=== PATIENT | female | born 1960 | race Caucasian/White ===

== ENCOUNTER 2017-05-24 00:40 | Inpatient (IN) ==
[2017-05-24] MEDS ORDERED: ASPIRIN PO STA (00:43)
[2017-05-24 02:09] LABS: UR AMPHETAMINES QUAL NONE DETECTED (NONE DETECT); UR BARBITUATES QUAL NONE DETECTED (NONE DETECT); UR BENZODIAZEPIN QUAL NONE DETECTED (NONE DETECT); UR CANNABINOIDS QUAL NONE DETECTED (NONE DETECT); UR COCAINE QUAL NONE DETECTED (NONE DETECT); UR MDMA QUAL NONE DETECTED (NONE DETECT); UR METHADONE QUAL NONE DETECTED (NONE DETECT); UR METHAMPHETAMINE QUAL NONE DETECTED (NONE DETECT); UR OPIATES QUAL NONE DETECTED (NONE DETECT); UR OXYCODONE QUAL NONE DETECTED (NONE DETECT); UR PCP QUAL NONE DETECTED (NONE DETECT); UR TCA QUAL NONE DETECTED (NONE DETECT)
[2017-05-24 02:16] LABS: INR 0.94 (0.86-1.15); PROTIME 13.3 Seconds (12.1-15.5)
[2017-05-24 02:17] LABS: PTT PL 32.7 Seconds (22.6-43.9)
[2017-05-24 02:23] LABS: BASO% 0.1 % (0.0-0.8); HEMATOCRIT 46.9 % (37.0-47.0); HEMOGLOBIN 14.9 g/dL (12.0-16.0); IMM GRAN# 0.04 X1000 (0.0-0.04); IMM GRAN% 0.3 % (0.0-0.5); LYMPH# 0.77 X1000 (1.2-3.4); MANUAL DIFF NEEDED? NO; MCH 32.7 PG (27-31); MCHC 31.8 g/dL (33-37); MCV 103.1 FL (81-99); MONO% 7.8 % (1.7-9.3); MPV 10.6 FL (7.4-10.4); NEUT% 86.8 % (42.2-75.2); PLT 281 X1000 (130-400); RBC 4.55 XMIL (4.2-5.4)
[2017-05-24 02:24] LABS: BILIRUBIN URINE 1+ (NEGATIVE); BLOOD URINE NEGATIVE (NEGATIVE); COLOR AMBER; GLUCOSE URINE NEGATIVE (NEGATIVE); LEUKOCYTES URINE TRACE (NEGATIVE); NITRITE URINE POSITIVE (NEGATIVE); PROTEIN URINE 2+(100 mg/dL) mg/dL (NEGATIVE); SP GRAVITY URINE 1.025
[2017-05-24 02:27] LABS: URINE RBC <10 /HPF (<10); URINE WBC <10 /HPF (<10)
[2017-05-24 02:28] LABS: CLARITY HAZY (CLEAR); URINE CULTURE PL NEEDED? YES; URINE EPITHELIAL CELLS <10 /HPF (<10); URINE SOURCE CATH
--- NOTE | 2017-05-24 02:32 | EKG Report ---
Test Performed on : 05/24/2017 00:45:35 AM Test Reason : CHEST PAIN Blood Pressure : / mmHG Vent. Rate : 101 BPM Atrial Rate : 101 BPM P-R Int : 142 ms QRS Dur : 074 ms QT Int : 360 ms P-R-T Axes : 063 077 026 degrees QTc Int : 466 ms Sinus tachycardia. with frequent premature ventricular complexes. Nonspecific ST abnormality Abnormal ECG No previous ECGs available Unconfirmed Result
[2017-05-24 02:34] LABS: AGAP 14; ALBUMIN 3.4 g/dL (3.5-5.0); ALKALINE PHOSPHATASE 90 U/L (32-104); BUN 17 mg/dL (8-22); CALCIUM 8.8 mg/dL (8.8-10.2); CHLORIDE 97 mmol/L (98-107); CK PROFILE 70 U/L (24-173); COSMO 279; GOT 20 U/L (10-30); GPT 11 U/L (10-36); MAGNESIUM 1.9 mg/dL (1.5-2.7); POTASSIUM 5.4 mmol/L (3.5-5.1); SODIUM 137 mmol/L (136-145); TCO2 26 mmol/L (25-35); TOTAL PROTEIN 7.1 g/dL (6.3-8.3)
[2017-05-24 02:34] LABS: UROBILINOGEN URINE 3+(8 mg/dL)
[2017-05-24] MEDS ORDERED: ROCEPHIN 1 GM in NS 50 ML IV ONE (02:43)
--- NOTE | 2017-05-24 04:08 | PROVIDER DOCUMENTATION ---
This chart was entered by Zeinab Bryan Scribe, acting as scribe for Roberto Hill MD. HPI-Respiratory General - General Chief Complaint: Shortness of Breath Stated Complaint: respiratory distress Time Seen by Provider: 05/24/17 00:42 Source: EMS, RN notes reviewed Allergies/Adverse Reactions: Patient Allergies Allergy/AdvReac Type Severity Reaction Status Date / Time No Known Allergies Allergy Verified 05/24/17 01:24 Home Medications: Home Medication List Medication Instructions Recorded Confirmed Last Taken Type Metoprolol Tartrate 100 mg PO BID 05/24/17 05/24/17 Unknown History Tramadol HCl [Ultram] 50 mg PO Q6-8H PRN PRN 05/24/17 05/24/17 Unknown History - History of Present Illness-Resp Nature of Presenting Problem: 58 Y/O F present to ER by EMS after being SOB RAIL BONDER. pt was given breathing treatment in the ambulance. pt was found unresponsive an low O2 sat level at home. EMS states that they tried to tube the pt but were unsuccessful. pt was on Bipap and unresponsive when arrive to ER/ Quality of Pain: reports: none Severity in ED: reports: moderate Onset/Duration: reports: just prior to arrival Timing: reports: still present Current Respiratory Medication Therapy: Initiated see nurses note Modifying Factors: improves with: nothing Associated Symptoms: reports: short of breath Review of Systems - Adult - REVIEW OF SYSTEMS - ADULT Constitutional: reports: no symptoms reported Eyes: reports: no symptoms reported Ears, Nose, Mouth & Throat: reports: no symptoms reported Cardiovascular: reports: no symptoms reported Respiratory: reports: see HPI, shortness of breath Gastrointestinal: reports: no symptoms reported Genitourinary: reports: no symptoms reported Musculoskeletal: reports: no symptoms reported Integumentary: reports: no symptoms reported Neurological: reports: no symptoms reported Psychiatric: reports: no symptoms reported Endocrine: reports: no symptoms reported Hematologic/Lymphatic: reports: no symptoms reported Allergic/Immunologic: reports: no symptoms reported All Other Systems: Reviewed and Negative Past History - Adult - PAST MEDICAL HISTORY-ADULT Review of Records: reports: Old Records Reviewed, Nursing Assessment Review - IMMUNIZATION STATUS Childhood Immunizations: See Nurse Assessment Flu Vaccine: See Nurse Assessment Physical Exam-General - PHYSICAL EXAM-ADULT Initial Vital Signs Reviewed: Yes - CONSTITUTIONAL General Appearance: mild distress, obese - EYES Eyes: PERRL/EOMI, pink conjunctivae - HEAD, EARS, NOSE, MOUTH & THROAT HENMT: normocephalic/atraumatic, moist mucous membranes - NECK Neck: non-tender, full range of motion - RESPIRATORY Respiratory: lungs clear, normal breath sounds - CARDIOVASCULAR Cardiovascular: no edema, tachycardia - GASTROINTESTINAL (ABDOMEN) Abdominal Exam: normal bowel sounds, non tender, soft - MUSCULOSKELETAL Back Exam: normal inspection, no CVA tenderness Extremity: normal inspection. negative: swelling, tenderness - SKIN Integumentary: other (dry skin). negative: rash, swelling, tenderness - NEUROLOGIC Neurologic: grossly normal, no motor/sensory deficits - PSYCHIATRIC Psych/Mental Status: normal mood/affect, oriented x 3 Progress - PLAN OF CARE/RESULTS Progress/Plan/Lab Results: Vital Signs - 8 hr 05/24/17 00:42 05/24/17 01:35 Temperature 101.7 F H Pulse Rate 102 H Respiratory Rate 25 H Blood Pressure 89/63 O2 Sat by Pulse Oximetry 90 L 97 Laboratory Results - last 24 hr 05/24/17 05/24/17 05/24/17 01:10 01:10 01:10 WBC RBC Hgb Hct MCV MCH MCHC RDW Std Deviation Plt Count MPV Immature Gran % (Auto) Neut % (Auto) Lymph % (Auto) [place] % (Auto) Eos % (Auto) Baso % (Auto) Immature Gran # (Auto) Neut # (Auto) Lymph # (Auto) [place] # (Auto) Eos # (Auto) Baso # (Auto) PT INR APTT (Factor Assay) Sodium 137 Potassium 5.4 H Chloride 97 L Carbon Dioxide 26 Anion Gap 14 BUN 17 Creatinine 0.9 Estimated GFR/1.73 m2 > 60 BUN/Creatinine Ratio 19 Glucose 169 H Calculated Osmolality 279 Calcium 8.8 Magnesium 1.9 Total Bilirubin 0.80 AST 20 ALT 11 Alkaline Phosphatase 90 Creatine Kinase 70 Troponin T 0.178 H Mkz-P-Yjbpulsumel Pept 98013 H Total Protein 7.1 Albumin 3.4 L Globulin 4.0 Albumin/Globulin Ratio 1.0 Urine Source Urine Color Urine Clarity Urine pH Ur Specific [place] Urine Protein Urine Ketones Urine Blood Urine Nitrite Urine Bilirubin Urine Urobilinogen Urine Microscopic RBC Urine WBC Urine Microscopic WBC Ur Epithelial Cells Urine Bacteria Urine Glucose Urine Opiates Screen Ur Oxycodone Screen Urine Methadone Screen Ur Barbituates Screen Ur Tricyclics Screen Ur Phencyclidine Scrn Ur Amphetamines Screen U Methamphetamines Scrn Urine MDMA Screen U Benzodiazepines Scrn Urine Cocaine Screen U Cannabinoids Screen 05/24/17 05/24/17 05/24/17 01:10 01:10 01:25 WBC 15.35 H RBC 4.55 Hgb 14.9 Hct 46.9 MCV 103.1 H MCH 32.7 H MCHC 31.8 L RDW Std Deviation 14.4 Plt Count 281 MPV 10.6 H Immature Gran % (Auto) 0.3 Neut % (Auto) 86.8 H Lymph % (Auto) 5.0 L [place] % (Auto) 7.8 Eos % (Auto) 0.0 Baso % (Auto) 0.1 Immature Gran # (Auto) 0.04 Neut # (Auto) 13.32 H Lymph # (Auto) 0.77 L [place] # (Auto) 1.20 H Eos # (Auto) 0.00 Baso # (Auto) 0.02 PT 13.3 INR 0.94 APTT (Factor Assay) 32.7 Sodium Potassium Chloride Carbon Dioxide Anion Gap BUN Creatinine Estimated GFR/1.73 m2 BUN/Creatinine Ratio Glucose Calculated Osmolality Calcium Magnesium Total Bilirubin AST ALT Alkaline Phosphatase Creatine Kinase Troponin T Ipa-K-Vzxtmaevcag Pept Total Protein Albumin Globulin Albumin/Globulin Ratio Urine Source CATH Urine Color ROBERT Urine Clarity HAZY A Urine pH 5.0 Ur Specific [place] 1.025 Urine Protein 2+(100 mg/dL) A Urine Ketones TRACE Urine Blood NEGATIVE Urine Nitrite POSITIVE A Urine Bilirubin 1+ A Urine Urobilinogen 3+(8 mg/dL) Urine Microscopic RBC <10 Urine WBC TRACE A Urine Microscopic WBC <10 Ur Epithelial Cells <10 Urine Bacteria 4+ Urine Glucose NEGATIVE Urine Opiates Screen Ur Oxycodone Screen Urine Methadone Screen Ur Barbituates Screen Ur Tricyclics Screen Ur Phencyclidine Scrn Ur Amphetamines Screen U Methamphetamines Scrn Urine MDMA Screen U Benzodiazepines Scrn Urine Cocaine Screen U Cannabinoids Screen 05/24/17 05/24/17 01:25 03:00 WBC RBC Hgb Hct MCV MCH MCHC RDW Std Deviation Plt Count MPV Immature Gran % (Auto) Neut % (Auto) Lymph % (Auto) [place] % (Auto) Eos % (Auto) Baso % (Auto) Immature Gran # (Auto) Neut # (Auto) Lymph # (Auto) [place] # (Auto) Eos # (Auto) Baso # (Auto) PT INR APTT (Factor Assay) Sodium Potassium Chloride Carbon Dioxide Anion Gap BUN Creatinine Estimated GFR/1.73 m2 BUN/Creatinine Ratio Glucose Calculated Osmolality Calcium Magnesium Total Bilirubin AST ALT Alkaline Phosphatase Creatine Kinase Troponin T 0.181 H Wil-H-Xvqfqckhkby Pept Total Protein Albumin Globulin Albumin/Globulin Ratio Urine Source Urine Color Urine Clarity Urine pH Ur Specific [place] Urine Protein Urine Ketones Urine Blood Urine Nitrite Urine Bilirubin Urine Urobilinogen Urine Microscopic RBC Urine WBC Urine Microscopic WBC Ur Epithelial Cells Urine Bacteria Urine Glucose Urine Opiates Screen NONE DETECTED Ur Oxycodone Screen NONE DETECTED Urine Methadone Screen NONE DETECTED Ur Barbituates Screen NONE DETECTED Ur Tricyclics Screen NONE DETECTED Ur Phencyclidine Scrn NONE DETECTED Ur Amphetamines Screen NONE DETECTED U Methamphetamines Scrn NONE DETECTED Urine MDMA Screen NONE DETECTED U Benzodiazepines Scrn NONE DETECTED Urine Cocaine Screen NONE DETECTED U Cannabinoids Screen NONE DETECTED Orders Category Date Time Status Cardiac Monitoring DIRECTED Care 05/24/17 00:43 Active Naik Cath Insertion ORDERED Care 05/24/17 01:34 Active Oxygen Therapy- ED Nursing DIRECTED Care 05/24/17 00:43 Active Saline Loc NOW Care 05/24/17 00:43 Active CHEST-PORTABLE [RAD] Stat Exams 05/24/17 00:44 Taken BLOOD CULTURE [BLDCUL] Stat Lab 05/24/17 01:33 Ordered CBC WITH ELECTRONIC DIFF [HEME] Stat Lab 05/24/17 01:10 Completed CK PROFILE [SP CHEM] Stat Lab 05/24/17 01:10 Completed COMPREHENSIVE METABOLIC PANEL [CHEM] Stat Lab 05/24/17 01:10 Completed MAGNESIUM [CHEM] Stat Lab 05/24/17 01:10 Completed PRO B-NATRIURETIC PEPTIDE Stat Lab 05/24/17 01:10 Completed PROTIME WITH INR PL [COAG] Stat Lab 05/24/17 01:[address] [COAG] Stat Lab 05/24/17 01:10 Completed TROPONIN T Stat Lab 05/24/17 01:10 Completed TROPONIN T Stat Lab 05/24/17 03:00 Completed URINE CULTURE [RM] Routine Lab 05/24/17 02:28 Ordered URINE DRUG SCREEN PL Stat Lab 05/24/17 01:25 Completed ua [URINALYSIS PL W/POSS RFLX CULT] [URINALYSIS] Stat Lab 05/24/17 01:25 Completed Aspirin Med 05/24/17 00:43 Discontinued 325 mg PO STAT STA CefTRIAXONE [Rocephin] 1 gm Med 05/24/17 02:43 Discontinued 0.9% Sodium Chloride Inj [Ns] 50 ml IV NOW BIPAP Stat Oth 05/24/17 02:59 Active EKG [EKG] Stat Ther 05/24/17 00:43 Draft Result Diagrams: 05/24/17 01:10 05/24/17 01:10 - EKG 1 Time of EKG reading by physician:: 00:41 EKG Read and Signed by:: Roberto Hill EKG Interpretation (*Must complete 3 of following elements*): Abnormal Rate: 106 Rhythm: sinus tachycardia with frequant premature ventricular complexes - XRAY 1 XRAY: Bilateral XRAY Study: Chest Impression: Abnormal XRAY Interpretation: bilat pneumonia, infiltrate by Dr. hill - CONSULTS/PCP/HOSPITALIST Notification #1 *Consult/PCP/Hospitalist*: Isaias-speech correction consultant will see patient at [facility] admit Time Discussed: 04:06 Consult Disposition: Admit Departure - Departure Date of Disposition Decision: 05/24/17 Time of Disposition Decision: 04:06 DIAGNOSIS: Acute respiratory failure, Pneumonia, Abnormal cardiac enzyme level Disposition: ADMITTED INPATIENT Certified Medical Emergency: Emergent Condition: Critical Referrals and Follow-Ups: None,PCP [Primary Care Provider] - - Critical Care Note This patient required my direct & personal management of CC.: Yes Total Time (mins): 90 Critical Care Statement: This patient required my direct personal management to treat or rule out processes, the absence of which, could potentiallly result in sudden, clinically significant life or limb threatening deterioration. Attestation - Physician/ CAITIE Attestation The physician spent face to face time with patient:: Yes Advanced Practice Provider documentation review:: Supervising physician onsite and consulted in the evaluation and care of this patient. The physician did have a face to face encounter with the patient. This chart was documented by the indicated scribe, (Zeinab Bryan Scribe) and accurately reflects the services I performed and decisions made by , Roberto Hill MD, as attested by the provider's signature.
--- NOTE | 2017-05-24 07:25 | Diag Imaging Result Doc PS360 ---
EXAM: CHEST-PORTABLE HISTORY: sob TECHNIQUE: AP portable semierect at 0203 COMMENT: There is ill-defined opacity around the upper hilum on the right. The heart size is within normal limits. There are no previous studies. IMPRESSION: Mild bronchopneumonia particularly in the right upper lobe. Electronically signed by Wayne Fernandez 05/24/2017 7:23 AM
--- NOTE | 2017-05-24 08:55 | HISTORY AND PHYSICAL ---
PRIMARY CARE PHYSICIAN: Unknown. CHIEF COMPLAINT: Found unresponsive with a low oxygen saturation. HISTORY OF PRESENTING ILLNESS: This is a 56-year-old, morbidly obese, female who arrived to [facility] ER via EMS after she was found unresponsive and had a low O2 saturation at home. EMS stated that they had tried to tube the patient but were unsuccessful so they placed her on BiPAP. She was unresponsive on arrival to the ER with an O2 saturation of 90% on BiPAP. She had a temperature of 101.7 degrees. Workup showed a white blood cell count of 15.35. She had a proBNP of 12,552. Her 1st troponin was elevated at 0.178. Her 2nd 1 was elevated also at 0.181. Urinalysis had positive nitrites, trace white blood cells, and 4+ bacteria. Her chest x-ray showed a mild bronchopneumonia in the right upper lobe. At the time of assessment, the patient was alert and awake. Sitting up in the bed. She still has her BiPAP on at this time and she is able to answer questions appropriately. She has been admitted to the intensive care unit for further evaluation and treatment. PAST MEDICAL HISTORY: CHF, COPD, and hypertension. PAST SURGICAL HISTORY: and a cholecystectomy. FAMILY HISTORY: Noncontributory. SOCIAL HISTORY: She currently lives with her family. Smokes half a pack of cigarettes a day and has done so for the past 20 years. Denies any alcohol or illicit drugs. ALLERGIES: She has no known drug allergies. HOME MEDICATIONS: She takes metoprolol 100 mg p.o. b.i.d. and Ultram 50 mg p.o. q.6-8 hours p.r.n. and we will hold that. LABORATORY DATA: Showed a white blood cell count of 15.35, hemoglobin 14.9, hematocrit 46.9, platelets 281,000. PT and INR of 13.3 and 0.94. Sodium 137, potassium 5.4, chloride 97, CO2 26, BUN of 17, creatinine 0.9, glucose 169, magnesium of 1.9. Creatine kinase was 70. First troponin on arrival was 0.178. Two hours later, it was 0.181. ProBNP was 12,552. Urinalysis showed positive nitrites, trace white blood cells, and 4+ bacteria. A urine drug screen showed none detected. Chest x-ray showed mild bronchopneumonia, particularly in the right upper lobe. EKG showed sinus tachycardia with frequent PVCs at 101. REVIEW OF SYSTEMS: She was positive for a fever and chills. Denied any blurred vision, dizziness. Denied any chest pain. She has had a nonproductive cough, shortness of breath. Denied any abdominal pain, constipation, diarrhea, burning or hurting with urination. PHYSICAL EXAMINATION: VITAL SIGNS: On arrival, she had a temperature of 101.7 degrees, pulse 102, respirations 25, blood pressure was 89/63, saturating 90% on BiPAP. Currently, her blood pressure is 137/71 with a temperature of 98.6 degrees, saturating 100% on BiPAP. GENERAL: This is a 56-year-old, morbidly obese, female who is sitting up in the bed, has BiPAP in place but is able to answer questions appropriately. HEENT: Normocephalic and atraumatic. The pupils are equal, round, and reactive to light. The extraocular movements are intact. The oropharynx and nares are clear. NECK: Supple. LUNGS: Clear to auscultation bilaterally with equal lung expansion and chest wall movement. HEART: With regular rate and rhythm. No murmurs, rubs, or gallops. ABDOMEN: Soft, nontender, nondistended. Bowel sounds are present x4 quadrants. EXTREMITIES: No clubbing, cyanosis, or edema. NEUROLOGICAL: The cranial nerves 2-12 appear grossly intact. ASSESSMENT: 1. Acute respiratory failure. 2. Right upper lobe pneumonia. 3. Elevated troponin. 4. Urinary tract infection. 5. Tobacco abuse. PLAN: She is being admitted to the intensive care unit. Placed on telemetry, BiPAP and O2 per protocol. Will be placed on Rocephin 1 gram IV q.24. We will check another set of cardiac enzymes now. Cardiology to be consulted, will do an echocardiogram today. We will recheck a CBC and a BMP in the a.m. We will do DuoNebs q.[address] on aspirin 325 mg daily. We will also give Lovenox 40 mg IV subcutaneous daily for DVT prophylaxis. We will also check a urine culture. Dictated by GUILLERMO Winkler for Miguel Shea MD cc: GUILLERMO Winkler, MD I have seen and examined this patient. I have provided face to face evaluation. I have reviewed her lab works and imagine studies. Patient presents with hx of being found unresponsive at home. I agree with the above plan. Please refer to the dictated addendum today as progress notes. ALEXXQ BRITTANY
[2017-05-24] MEDS ORDERED: LOPRESSOR PO SCH (09:00)
[2017-05-24] MEDS: LOVENOX SUBQ SCH (09:19)
[2017-05-24] MEDS: ASPIRIN PO SCH (09:19)
[2017-05-24 10:23] LABS: BE 2.6 mmoll (-3.0-3.0); BLOOD TYPE ARTERIAL; DRAW SITE R RADIAL; METHB 1.1 % (0.0-1.5); O2(CT) 18.3 mL/dL (15.0-23.0); PO2(98.6) 72 mmHg (60-100); SAMPLE BLOOD; SAO2 95.8 % (95.0-100.0); THB 14.1 g/dL (11.5-17.4)
[2017-05-24 10:32] LABS: PCO2(98.6) 69 mmHg (35-45); pH(98.6) 7.27 (7.35-7.45)
[2017-05-24 10:33] LABS: ALLEN TEST YES; MODALITY BI PAP
[2017-05-24] MEDS: SOLU-MEDROL IV SCH ×2 (11:03→18:38)
[2017-05-24] MEDS: ZITHROMAX 500 MG/NS 500 MG/250 ML IVPB IV SCH (11:03)
[2017-05-24] MEDS: DUONEB (A & A) INH SCH ×4 (11:36→23:32)
--- NOTE | 2017-05-24 15:28 | CONSULTATION ---
DATE OF CONSULTATION: 05/24/2017 INDICATION: Elevated cardiac enzymes. HISTORY OF PRESENT ILLNESS: Ms Dale is a 56-year-old morbidly obese white female with a history of COPD and supplemental oxygen at home. She presented for evaluation of altered mental status. She was apparently at home. She is not able to provide much history regarding the event but apparently went somewhat unresponsive. Her called EMS and there is some confusion about exactly what happened but ultimately she presented to the ER. There she was found to have what looked like a bronchopneumonia. In addition, she had an elevated proBNP and elevated troponins. They have been relatively flat in nature. She has no previous cardiac history. She is not complaining of any acute chest pain. PAST MEDICAL HISTORY: Significant for. 1. COPD. 2. Hypertension. SOCIAL HISTORY: She smokes, has done so for many years. She is , daughter is at bedside. No alcohol history. FAMILY HISTORY: Significant for hypertension. REVIEW OF SYSTEMS: A 10 system review of systems is negative except for those things mentioned in HPI. PHYSICAL EXAMINATION: Vital signs: She is afebrile. Heart rate is 75, blood pressure most recently is 89/59. She has had systolics anywhere from the 80s to 130s. Her I's and O's are -5 mL over the time in the hospital. Input and output is very poorly recorded. Her initial temperature was 101.7 degrees on presentation. Her heart rate 75, blood pressure as recorded. General: She is in no acute distress. She is somewhat disheveled. HEENT: Oropharynx is moist. Poor dentition. BiPAP is in place. Eye examination shows pink conjunctivae. White sclerae. Neck: Examination shows no obvious thyromegaly or thyroid tenderness. Cardiovascular: She is in a regular rate and rhythm. She does not appear to have any edema in her lower extremities although they are very obese. They are warm and well perfused. Chest: Exam is extremely difficult. Is very distant. Do not hear any obvious abnormal sounds however again it is extremely distant breath sounds. Abdomen: Soft, nontender, nondistended. She has no obvious organomegaly. Skin Exam: Warm and dry throughout without any rashes. Neurological: She is moving all extremities well. Cranial nerves 2-12 are intact without any sensation deficits. Psychiatric: Alert, oriented, pleasant, normal mood and affect. PERTINENT DATA: White count is 15.3, hematocrit 46.9, platelet count 281,000. She has a left shift. INR 0.9. Her initial ABG showed a pH of 7.27, pCO2 of 69, PO2 of 72, that is on an FiO2 of 40% and BiPAP. Sodium is 137, potassium 5.4, her BUN is 17, creatinine 0.9. Her cardiac enzyme initial was 0.178 and most recent was 0.117. Her proBNP was 12,000. Urinalysis was reviewed, had trace WBCs, 4+ bacteria. She had a negative urine drug screen. Her chest x-ray showed mild bronchopneumonia in the right upper lobe. Her EKG on presentation showed sinus rhythm with PVCs, subsequent again sinus rhythm PVCs, no evidence of acute ischemic changes or previous infarct. ASSESSMENT: 1. Bronchopneumonia with respiratory failure likely patient with chronic obstructive pulmonary disease, obstructive sleep apnea in a Pickwickian type picture. 2. Elevated cardiac enzymes. PLAN: We will check the echocardiogram on this patient. She is already on aspirin which I would continue. I would likely discontinue treating her from the standpoint of her lungs with Solu- Medrol and antibiotics as administered as well as the duo nebs. We will follow up on the echocardiogram result. Her blood pressure is somewhat difficult being that it is widely variable. We will continue to follow the patient for now. cc: Jignesh Esparza MD
[2017-05-24] MEDS: NS 1,000 ML IV SCH (18:38)
[2017-05-24] MEDS: LOPRESSOR PO SCH (20:09)
[2017-05-25] MEDS: SOLU-MEDROL IV SCH ×3 (01:34→18:24)
[2017-05-25] MEDS: ROCEPHIN 1 GM in NS 50 ML IV SCH (03:30)
[2017-05-25] MEDS: DUONEB (A & A) INH SCH ×6 (03:36→23:31)
[2017-05-25 05:28] LABS: MANUAL DIFF NEEDED? NO
[2017-05-25 06:35] LABS: HEMATOCRIT 41.1 % (37.0-47.0); HEMOGLOBIN 12.6 g/dL (12.0-16.0); IMM GRAN# 0.01 X1000 (0.0-0.04); IMM GRAN% 0.2 % (0.0-0.5); LYMPH# 0.97 X1000 (1.2-3.4); LYMPH% 16.6 % (20.5-51.1); MCH 31.6 PG (27-31); MCHC 30.7 g/dL (33-37); MONO# 0.16 X1000 (0.11-0.59); MONO% 2.7 % (1.7-9.3); MPV 10.5 FL (7.4-10.4); NEUT% 80.5 % (42.2-75.2); PLT 233 X1000 (130-400); RBC 3.99 XMIL (4.2-5.4)
[2017-05-25 07:01] LABS: AGAP 8; BUN 27 mg/dL (8-22); CALCIUM 8.5 mg/dL (8.8-10.2); CHLORIDE 101 mmol/L (98-107); COSMO 282; SODIUM 138 mmol/L (136-145); TCO2 30 mmol/L (25-35)
[2017-05-25] MEDS ORDERED: ULTRAM PO PRN (07:11)
--- NOTE | 2017-05-25 07:37 | PROGRESS NOTE ---
DATE: 05/24/2017 SUBJECTIVE: Briefly, Ms. Dale got admitted last night after she was unresponsive at home. EMS was called and they tried to intubate the patient on the field because of extremely low O2 saturation. However, this was impossible so patient was put on BiPAP and brought in to the emergency department. Over here, patient has been on the BiPAP until this morning. Saturation has significantly improved. Patient came in with an O2 saturation of 90%. OBJECTIVE: General: Ms. Dale is a 56-year-old, morbidly obese, female. She is in bed, under the BiPAP. Does not seems to be in any remarkable distress. HEENT: Mucosa is pink and moist. Anicteric and acyanotic. Neck: Supple. Chest: Air entry is bilaterally reduced. There is diffuse bilateral wheezing throughout the lung chaidez. I did not did not appreciate any crepitations. Cardiovascular: Regular rate and rhythm. No murmurs. No rubs. No gallops. Abdomen: Soft, distended, nontender. Extremities: No pedal edema. MECHANIC FOREMAN: Patient is awake, alert, oriented. Follows some basic commands and there is not any focal neurological deficit. Laboratory Data: WBC is 15.35, hemoglobin is 14.9, platelet count of 286,000. Chemistry is also reviewed. Sodium is 137, potassium is 5.4, chloride 97. Troponins have been a little bit on the higher side. ProBNP 12,552. A chest x-ray which was done on presentation shows mild bronchopneumonia, particularly in the right upper lobe. ASSESSMENT: 1. Acute hypoxemic respiratory failure. The patient came in with O2 saturation of 90. My understanding is that it was even ridiculously lower at home before coming to the hospital. Patient continues to be on the BiPAP. Saturation has improved. 2. Altered mental status. The etiology is unclear. We think it is due to toxic metabolic encephalopathy. The patient's O2 saturation was extremely low which hypoxemic encephalopathy could explain that. We do not know what her CO2 was and I suspect the CO2 was also probably high when she was found. However, this morning, mentation has significantly improved. We are going to continue with the BiPAP. We will do an ABG just to see where her acid-base is. 3. Sepsis. The patient presented with a documented fever, temperature of 101.7, pulse rate was 102, respirations were 25. Patient was hypotensive with a blood pressure of 89/63. I do not see any blood cultures done so we will order blood cultures. Patient has been started on ceftriaxone. I will add azithromycin to cover pneumonia. 4. Acute bronchospasm, likely secondary to bronchopneumonia versus chronic obstructive pulmonary disease exacerbation. Patient will continue with nebulization, pulmonary toilette, antibiotics, and I have added steroids. 5. Possible diastolic heart failure with pulmonary edema. We will do a CT scan of the chest to give us a better idea on the lung anatomy. 6. Elevated troponin. EKG shows no significant changes on the ST-segment nor any T-wave abnormality. There was, however, some unifocal premature ventricular contractions. I am not quite sure if this was all related to the pulmonary disease, putting in a possible demand ischemia on the heart. Cardiology has been consulted. Patient is currently on aspirin. We will repeat the EKG for tomorrow morning. We will be pending further evaluation and recommendations from cardiology. 7. Morbid obesity. Patient has been counseled. 8. Tobacco abuse. Patient has been counseled. cc: Miguel Shea MD
[2017-05-25] MEDS: LOPRESSOR PO SCH ×2 (08:47→20:11)
[2017-05-25] MEDS: ASPIRIN PO SCH (08:47)
[2017-05-25] MEDS: NS 1,000 ML IV SCH ×2 (08:47→20:11)
[2017-05-25] MEDS: LOVENOX SUBQ SCH (08:47)
[2017-05-25 08:57] LABS: BE 2.8 mmoll (-3.0-3.0); BLOOD TYPE ARTERIAL; DRAW SITE R RADIAL; O2(CT) 17.9 mL/dL (15.0-23.0); PO2(98.6) 82 mmHg (60-100); SAMPLE BLOOD; SAO2 96.8 % (95.0-100.0); THB 13.5 g/dL (11.5-17.4); pH(98.6) 7.31 (7.35-7.45)
[2017-05-25 09:04] LABS: MODALITY CANNULA; PCO2(98.6) 61 mmHg (35-45)
[2017-05-25 09:05] LABS: ALLEN TEST YES
[2017-05-25] MEDS: ZITHROMAX 500 MG/NS 500 MG/250 ML IVPB IV SCH (09:43)
[2017-05-25] MEDS ORDERED: DUONEB (A & A) INH PRN (11:59)
[2017-05-25] MEDS ORDERED: VANCOMYCIN IV PER PHARMACY MISC SCH (12:00)
[2017-05-25] MEDS: VANCOMYCIN 2,000 MG in NS 500 ML IV SCH (13:18)
--- NOTE | 2017-05-25 16:15 | ECHO REPORT ---
ORDER DATE: 05/24/2017 INDICATION: Shortness of breath, pneumonia, pickwickian syndrome. FINDINGS: 1. Right atrium is normal in size. 2. Mild tricuspid regurgitation. RV systolic pressure of 48. 3. Poor visualization, overall, of the right ventricle, but it does appear to be enlarged with mild reduction in RV systolic function. 4. Limited images of the pulmonic valve. 5. Normal left atrial size. 6. I do not see any obvious mitral valve prolapse present. No significant mitral regurgitation, but Doppler and 2D evaluation of the mitral valve is very difficult. 7. The left ventricle appears to be normal in size, with an end-diastolic dimension of 3.5. There is mild left ventricular hypertrophy, with a posterior and interventricular septal wall thickness 1.2. Normal LV systolic function with an estimated EF of 60%. Definity echo contrast was used to better visualize the endocardial borders. 8. Aortic valve opens well. No evidence of stenosis or insufficiency. 9. Aorta appears normal in visualized segments. 10. No pericardial effusion seen. This is an extremely difficult study, compromised by the patient's lung issues, positioning, as well as morbid obesity. cc: MD Gala Suarez CRNP
--- NOTE | 2017-05-25 20:52 | PROGRESS NOTE ---
DATE: 05/25/2017 SUBJECTIVE: Patient notes that she chronically has diarrhea and she takes Lomotil every day and sometimes takes Imodium with that. States this has not changed. Notes that her cough has improved. Her shortness of breath has improved. She still has been too tired and fatigued to get out of bed. Denies any chest pain, palpitations. Denies any blood in her stool. Denies any urinary complications. OBJECTIVE: Vital signs: Temperature 98, pulse 78, respiratory rate 18, blood pressure 109/52. General: Patient is awake, alert, obese female who is currently in no respiratory distress. Pleasant to talk with. Neck: Supple. No JVD. HEENT: Normocephalic, atraumatic. KARRI. CARDIOVASCULAR: Regular rate. Chest: Clear. Nonlabored although decreased breath sounds. Expect this is secondary to her body habitus. Appears to have equal excursion bilaterally. Abdomen: Soft, obese, nondistended. Extremities: Moves all extremities. No edema. Neurologic: Cranial nerves 2-12 appear grossly intact. ASSESSMENT: 1. Acute respiratory failure. Continues to improve. She is currently on nasal cannula. She is off BiPAP. She was on BiPAP throughout the night. We will see how she does to day. 2. Right upper lobe pneumonia. Continue azithromycin and Rocephin. 3. Chronic obstructive pulmonary disease with exacerbation. Continue Solu-Medrol although will decrease to 40 IV q.8 hours and we will follow. 4. Chronic hypoxemia with acute worsening. She is on home oxygen. We will continue to follow. 5. Elevated troponin likely more secondary to her hypoxemia than true coronary disease. 6. Urinary tract infection. 7. Chronic tobacco abuse. PLAN: Discussed with patient the perils of smoking. Discussed with her our current plan. We will continue antibiotics. We will continue in ICU today. Hopefully we can transition her to the floor and get up and move about tomorrow. cc: Jose Alejandro Argueta MD
[2017-05-26] MEDS ORDERED: PNEUMOVAX 23 IM ONE (00:06)
[2017-05-26] MEDS: VANCOMYCIN 2,000 MG in NS 500 ML IV SCH ×2 (01:05→13:14)
[2017-05-26] MEDS: SOLU-MEDROL IV SCH ×3 (03:30→17:18)
[2017-05-26] MEDS: DUONEB (A & A) INH SCH ×6 (03:46→23:08)
[2017-05-26] MEDS: ROCEPHIN 1 GM in NS 50 ML IV SCH (04:00)
[2017-05-26] MEDS ORDERED: ZITHROMAX 500 MG/NS 500 MG/250 ML IVPB IV SCH (07:04)
--- NOTE | 2017-05-26 07:23 | Diag Imaging Result Doc PS360 ---
EXAM: CT THORAX W/CONTRAST HISTORY: pna TECHNIQUE: CT of the chest with intravenous contrast COMMENT: There are no previous studies. There are some atelectatic or fibrotic opacities in the lung bases. There is also bilateral lower lobe pleural-based opacity posteriorly more so on the right than the left. This may also be due to fibrosis. There are tree-in-bud opacities throughout the right upper lobe. This is also seen in a patchy distribution in the superior segment of the left lower lobe and the left upper lobe. Some larger groundglass opacities are present in the left apex. There is aorticopulmonary window and right paratracheal adenopathy. Some calcified nodes are present in the left hilum and subcarina and in the right hilum inferiorly. In the posterior right upper lobe around image 57 there is a pleural-based opacity which measures a maximum of 18 mm in diameter. No acute bony abnormalities are present. IMPRESSION: Nonspecific pleural and parenchymal opacities which may be related to minimal pneumonitis or chronic inflammatory disease. Clinical correlation and follow-up may be helpful. Electronically signed by Wayne Fernandez 05/24/2017 6:04 PM
[2017-05-26] MEDS: LOPRESSOR PO SCH ×2 (08:44→20:27)
[2017-05-26] MEDS: LOVENOX SUBQ SCH (08:44)
[2017-05-26] MEDS: ZITHROMAX PO SCH (08:44)
[2017-05-26] MEDS: ASPIRIN PO SCH (08:44)
[2017-05-26] MEDS ORDERED: LASIX IV ONE (16:53)
--- NOTE | 2017-05-26 17:20 | PROGRESS NOTE ---
DATE: 05/26/2017 SUBJECTIVE: Patient continues without dyspnea on supplemental oxygen per nasal cannula. There has been no chest pain. OBJECTIVE: Vital Signs: Blood pressure 148/64, heart rate 75 and regular, oxygen saturation 97% on nasal cannula oxygen at 3 L/minute. Neck: Jugular venous distention is evident consistent with elevated central venous pressure. Chest: Clear to auscultation. Cardiac exam: Reveals somewhat distant heart sounds with a regular rate and rhythm without appreciable murmur or gallop. Abdomen: Abdomen is morbidly obese. Extremities: Without edema. DIAGNOSTIC TESTS: Recent echocardiography indicates a technically difficult study, mild tricuspid regurgitation, moderate pulmonary hypertension. Some enlargement of right ventricle suggested with mild reduction in right ventricular systolic function. Mild left ventricular hypertrophy, estimated left ejection fraction 60% and inferior vena cava not well demonstrated. LABORATORY DATA: Includes a white blood cell count of 5.8 with previous white blood cell count on admission 15.35, hematocrit 41.1. Troponin T on admission 0.117. B type natriuretic peptide level on admission 82234. IMPRESSION: 1. Dyspnea probably multifactorial. 2. Acute on chronic congestive heart failure with normal left ventricular ejection fraction. Exam and echocardiography suggests right-sided congestive heart failure. Diastolic left ventricular heart failure also suspected. 1. Chronic obstructive pulmonary disease. 2. Reported right upper lobe pneumonia. 3. Morbid obesity. 4. Chronic cigarette use ongoing. RECOMMENDATIONS: 1. Diurese with intravenous Lasix and transition to oral torsemide. 2. Smoking cessation strongly advised. 3. Weight loss strongly advised. 4. Consider outpatient sleep study. cc: Malcolm Pantoja MD
[2017-05-26] MEDS: NS 1,000 ML IV SCH (18:34)
--- NOTE | 2017-05-26 18:41 | PROGRESS NOTE ---
DATE: 05/26/2017 SUBJECTIVE: Patient lying in bed. She is awake, she is nonverbal. She does appear to be alert. PHYSICAL: 97.2, pulse 58, respiratory 14, BP 94/49. She is currently on BiPAP. General: Patient lying in bed flatly. She is in no current respiratory distress. She does smile when stimulated. CV: Regular rate. HEENT: Normocephalic, atraumatic, KARRI. Neck: Is supple. No appreciable JVD. Chest: Positive rhonchi, no appreciable crackles. No wheezing. Abdomen: Soft. Extremities: No edema is noted. No clubbing, no cyanosis. ASSESSMENT: 1. Right lower lobe pneumonia. 2. Acute hypoxic respiratory failure. 3. Elevated troponin. 4. Urinary tract infection. PLAN: Will continue patient on antibiotics. She is currently on Rocephin, azithromycin. Will wean her Solu-Medrol from 60 q.8 to 40 q.8, will continue BiPAP breathing treatments and will follow. cc: Jose Alejandro Argueta MD
[2017-05-27] MEDS: VANCOMYCIN 2,000 MG in NS 500 ML IV SCH ×2 (00:28→16:44)
[2017-05-27] MEDS: ROCEPHIN 1 GM in NS 50 ML IV SCH (02:20)
[2017-05-27] MEDS: SOLU-MEDROL IV SCH (02:20)
[2017-05-27] MEDS: DUONEB (A & A) INH SCH ×4 (03:36→16:54)
[2017-05-27 06:44] LABS: HEMATOCRIT 40.7 % (37.0-47.0); HEMOGLOBIN 12.6 g/dL (12.0-16.0); MCH 31.7 PG (27-31); MCV 102.5 FL (81-99); MPV 9.9 FL (7.4-10.4); RBC 3.97 XMIL (4.2-5.4)
[2017-05-27 07:11] LABS: AGAP 7; ALBUMIN 2.9 g/dL (3.5-5.0); ALKALINE PHOSPHATASE 57 U/L (32-104); BUN 25 mg/dL (8-22); CALCIUM 8.5 mg/dL (8.8-10.2); CHLORIDE 104 mmol/L (98-107); COSMO 288; GOT 10 U/L (10-30); GPT 9 U/L (10-36); MAGNESIUM 2.2 mg/dL (1.5-2.7); POTASSIUM 4.5 mmol/L (3.5-5.1); SODIUM 141 mmol/L (136-145); TCO2 30 mmol/L (25-35); TOTAL PROTEIN 6.4 g/dL (6.3-8.3)
[2017-05-27] MEDS: NS 1,000 ML IV SCH (07:17)
[2017-05-27] MEDS: LOVENOX SUBQ SCH (08:43)
[2017-05-27] MEDS: LOPRESSOR PO SCH (08:43)
[2017-05-27] MEDS: ZITHROMAX PO SCH (08:44)
[2017-05-27] MEDS: ASPIRIN PO SCH (08:44)
[2017-05-27] MEDS ORDERED: DEMADEX PO SCH (09:00)
[2017-05-27] MEDS ORDERED: KLOR-CON PO SCH (09:00)
[2017-05-27] MEDS ORDERED: SOLU-MEDROL IV SCH (12:00)
[2017-05-27 15:27] VITALS: BP 158/86
--- NOTE | 2017-05-28 18:06 | DISCHARGE SUMMARY ---
ADMISSION DATE: 05/24/2017 DISCHARGE DATE: 05/27/2017 DISCHARGE DIAGNOSES: 1. Morbid obesity. 2. Acute hypoxic respiratory failure likely secondary to Pickwickian syndrome. 3. Right upper lobe pneumonia, improved. 4. Elevated troponin secondary to cardiac strain. 5. Urinary tract infection. 6. Chronic tobacco abuse. CONSULTATIONS: Cardiology. PROCEDURES: None. BRIEF HOSPITAL COURSE: Patient is a 56-year-old female who presented to the emergency department in acute respiratory distress. She was placed on BiPAP, antibiotics, oxygen, breathing treatments, steroids. Continued to improve. She was able to wean off BiPAP and then wean off of the Ventimask. She is on oxygen at home 2-3 L. She was able to wean down to 2.5 L in the hospital. She was able to ambulate the room, back to her usual baseline at home. Therefore, she will be discharged home. DISPOSITION: The patient will be discharged home. Will go home on Omnicef and azithromycin, as well as a Medrol Dosepak. She will continue breathing treatments, oxygen. She will follow up with Dr. Red in 1 week to reevaluate. TIME SPENT: 45 minutes were spent in total care on date of discharge. cc: Jose Alejandro Argueta MD
== END 2017-05-27 18:40 | disposition home or self-care (01) ==
LOC: P.ED 00:40 → P.ICU 04:48 → SUATTDRO 04:48 → P.MEDSURG 05-26 14:27
PROVIDERS: ATTEND Family Medicine